=== PATIENT | male | born 1960 | race Caucasian/White ===

== ENCOUNTER 2018-06-27 18:00 | Emergency (ER) | payer MEDICAID ==
--- NOTE | 2018-06-27 18:06 | EDPHY ---
H & P Time Seen by Provider: 06/27/18 18:06 Medical Decision Making ED Course/Re-evaluation: CHIEF COMPLAINT: HISTORY OF PRESENT ILLNESS: must have 4 elements: Location, Quality, Severity , Duration, Timing, Context, Modifying Factors, Associated Signs and Symptoms REVIEW OF SYSTEMS: A comprehensive 10 system review of systems is otherwise negative aside from elements mentioned in the history of present illness and medical decision making. PHYSICAL EXAM: HR, BP, O2 Sat, RR. Temp noted General Appearance: Alert, well hydrated, appropriate, and non-toxic appearing. Head: Atraumatic without scalp tenderness or obvious injury Eyes: Pupils equal, round, reactive to light and accommodation, EOMI, no trauma , no injection. Ears: Clear bilaterally, no perforation, normal landmarks Nose: Atraumatic, no rhinorrhea, clear. Throat: There is no erythema or exudates, no lesions, normal tonsils, mucus membranes moist. Neck: Supple, 2+ carotid upstroke, nontender, no lymphadenopathy. Respiratory: No retractions, no distress, no wheezes, and no accessory muscle use. Lungs are clear to auscultation bilaterally. Cardiovascular: Regular rate and rhythm, no murmurs, rubs, or gallops. Bilateral carotid, radial, dorsalis pedis, and posterior tibial pulses intact. Good capillary refill all extremities. Gastrointestinal: Abdomen is soft, nontender, non-distended, no masses, no rebound, no guarding, no peritoneal signs. Musculoskeletal: Normal active ROM of all extremities, atraumatic. Neurological: Alert, appropriate, and interactive. The patient has normal DTRs and non-focal cranial nerves, motor, sensory, and cerebellar exam. Skin: No rashes, good turgor, no nodules on palpation. Past medical history: Past surgical history: Family history: Social history: DIAGNOSTICS/PROCEDURES/CRITICAL CARE TIME: DIFFERENTIAL DIAGNOSIS: MEDICAL DECISION MAKING:
[2018-06-27] MEDS ORDERED: RANITIDINE 50 MG/2 ML VIAL IVP ONE (18:09)
[2018-06-27] MEDS ORDERED: EPINEPHrine 1 MG/ML INJ IM ONE (18:09)
[2018-06-27] MEDS ORDERED: NS 1,000 ML IV ONE (18:09)
[2018-06-27] MEDS ORDERED: methylPREDNISolone SOD SUCC 125 MG/2 ML VIAL IVP ONE (18:09)
--- NOTE | 2018-06-27 18:11 | EDPHY ---
H & P Time Seen by Provider: 06/27/18 18:06 HPI/ROS: CHIEF COMPLAINT: Wasp sting possible allergic reaction HISTORY OF PRESENT ILLNESS: 58-year-old male with no prior history of anaphylaxis drove to the ER after he was stung by a wasp or yellow jacket on the dorsum of his right hand approximately 5:00 p.m. Today. He developed diffuse erythema, itching. He consumed 125 mg of oral Benadryl and drove himself to the E R. He is complaining of diffuse itching and erythema. Denies: Dyspnea, chest pain, back pain, abdominal pain, dysphagia, nausea, vomiting PRIMARY CARE PROVIDER: REVIEW OF SYSTEMS: 10 systems reviewed and negative with the exception of the elements mentioned in the history of present illness PAST MEDICAL & SURGICAL HISTORY: No history of cardiac disease SOCIAL HISTORY:Nonsmoker PHYSICAL EXAM (Prior to examination, patient consented to physical exam, hands were washed and my usual and customary physical exam procedures followed) 1) GENERAL: Well-developed, well-nourished, alert and oriented. Appears to be in no acute distress. 2) HEAD: Normocephalic, atraumatic 3) HEENT: Pupils equal, round, reactive to light bilaterally. Sclera anicteric. Nasopharynx, oropharynx, clear, no lesions. No tonsillar or glossal enlargement.[ 4) NECK: Full range of motion, no meningeal signs. 5) LUNGS: Clear auscultation bilaterally, no wheezes, no rhonchi, no retractions. 6) HEART: Regular rate and rhythm, no murmur, no heave, no gallop. 7) ABDOMEN: No guarding, no rebound, no focal tenderness, negative McBurney's, negative Troy's, negative Rovsing's, negative peritoneal sign, 8) MUSCULOSKELETAL: Moving all extremities, no focal areas of tenderness, no obvious trauma. No peripheral edema or discoloration. 9) BACK: No CVA tenderness, no midline vertebral tenderness, no fluctuance, no step-off, no obvious trauma, no visual or palpable abnormality. 10) SKIN: Diffuse erythema noted 11) Psychiatric: Patient is oriented X 3, there is no agitation. DIFFERENTIAL DIAGNOSIS: In no particular order including but not limited to urticaria, allergic reaction, anaphylaxis Constitutional: Initial Vital Signs Temperature (C) 36.7 C 06/27/18 18:07 Heart Rate 90 06/27/18 18:07 Respiratory Rate 18 06/27/18 18:07 Blood Pressure 120/80 06/27/18 18:07 O2 Sat (%) 94 06/27/18 18:07 O2 Delivery Mode Room Air Allergies/Adverse Reactions: No Known Allergies Allergy (Unverified 06/27/18 18:23) Home Medications: Medication Instructions Recorded EPINEPHrine [Epipen 0.3 MG] 0.3 mg IM ONCE #2 syr 06/27/18 Medical Decision Making ED Course/Re-evaluation: 6:10 p.m.: Patient has already consumed 125 mg of oral Benadryl pre-hospital. He will be given Pepcid, Solu-Medrol, epinephrine, IV fluids, observed for period of time in the ER. I saw this patient independently based on established practice protocols. Care of patient under supervision of secondary supervising physician Dr Campuzano 7:10 p.m.: Re-evaluation. Patient has received epinephrine Pepcid Solu- Medrol. At this time his erythema has resolved. Asymptomatic. He is reading a book. Lungs are clear bilaterally. Re-evaluation. He patient remains asymptomatic. He will be discharged with EpiPen prescription as well as my usual and customary allergic reaction precautions and instructions. - Data Points Medications Given: Discontinued Medications Epinephrine HCl (Epinephrine) 0.3 mg IM EDNOW ONE Stop: 06/27/18 18:10 Last Admin: 06/27/18 18:30 Dose: 0.3 mg Sodium Chloride (Ns) 1,000 mls @ 0 mls/hr IV ONCE ONE; Wide Open PRN Reason: Protocol Stop: 06/27/18 18:10 Last Admin: 06/27/18 18:23 Dose: 1,000 mls Methylprednisolone Sodium Succinate (Solu-Medrol) 125 mg IVP EDNOW ONE Stop: 06/27/18 18:10 Last Admin: 06/27/18 18:24 Dose: 125 mg Ranitidine HCl (Zantac) 50 mg IVP EDNOW ONE Stop: 06/27/18 18:10 Last Admin: 06/27/18 18:24 Dose: 50 mg Departure - Departure Disposition: Home, Routine, Self-Care Clinical Impression: Allergic reaction to bee sting Condition: Good Instructions: Insect Bite or Sting (ED), Allergies (ED), General Allergic Reaction (ED) Additional Instructions: If you are stung again use your EpiPen and call 911. If you develop allergic reaction symptoms call 911 Referrals: Aamir Bedoya MD [Primary Care Provider] - 2-3 days, if not improved Prescriptions: EPINEPHrine [Epipen 0.3 MG] 0.3 mg IM ONCE #2 syr
[2018-06-27 20:11] VITALS: BP 109/76
== END 2018-06-27 20:11 | disposition home or self-care (01) ==
DX: T63.441A Toxic effect of venom of bees, accidental (unintentional), initial encounter (principal)
CPT/HCPCS: 96374; J0171; J2780; J2930